=== PATIENT | male | born 1935 | race African-American/Black ===

== ENCOUNTER 2022-01-30 13:51 | Outpatient (CLI) | payer MEDICARE ==
[2022-01-30 14:01] LABS: Bilirubin Negative (Negative); Blood, Urine Negative (Negative); Glucose, Urine (Dipstick) Negative (Negative); Ketone, Urine Negative (Negative); Leukocyte Negative (Negative); Nitrite Negative (Negative); Protein, Urine (Dipstick) Negative (Neg-Trace); pH, Urine 5.5 (5.0-9.0)
[2022-01-30 14:06] LABS: Clarity Hazy (Clear)
[2022-01-30 14:07] LABS: Bacteria/HPF 3+ HPF (None Seen); Other Microscopic Description C&S SET UP; RBC/HPF None Seen HPF (0-3); Squamous Epithelial 0-3 HPF (0-3); WBC/HPF 0-3 HPF (0-3)
== END 2022-01-30 13:52 | disposition home or self-care (01) ==
LOC: BURLAB 13:51
PROVIDERS: ATTEND Nurse Practitioner Family
DX: N39.0 Urinary tract infection, site not specified (principal)
CPT/HCPCS: 81001; 87086